=== PATIENT | female | born 1950 | race African-American/Black ===

== ENCOUNTER 2017-04-08 07:28 | Inpatient (IN) | payer MEDICARE ==
[~2017-04-08] VITALS: Ht 162.6 cm; Wt 45.5 kg
[2017-04-08] MEDS ORDERED: FENT-77 TD (07:41)
[2017-04-08] MEDS ORDERED: SERT50TA12 PO (07:41)
[2017-04-08] MEDS ORDERED: ESTR-95 PO (07:41)
[2017-04-08] MEDS ORDERED: FLUO15CR2 TP (07:41)
[2017-04-08] MEDS ORDERED: HYDR8TAB43 PO (07:41)
[2017-04-08] MEDS ORDERED: TEMA15CA PO (07:41)
[2017-04-08] MEDS ORDERED: OXCA300T PO (07:41)
[2017-04-08] MEDS ORDERED: CLON1 PO (07:41)
[2017-04-08] MEDS ORDERED: PROV5 PO (07:41)
[2017-04-08 07:42] LABS: GLUCOSE,POINT OF CARE 134 MG/DL (70-110)
[2017-04-08] MEDS ORDERED: SITA1TAB2 PO (08:01)
[2017-04-08] MEDS ORDERED: ONDANSETRON HCL 4 MG/2 ML VIAL IVP ONE (09:15)
[2017-04-08] MEDS ORDERED: SODIUM CHLORIDE 0.9% 1,000 ML IV ONE (09:15)
[2017-04-08] MEDS ORDERED: HYDROmorphone 2 MG/ML SYRINGE IVP ONE (09:15)
[2017-04-08 09:17] LABS: BASOPHILS % (AUTO) 0.5 % (0.0-2.0); EOSINOPHILS % (AUTO) 0.7 % (1.0-6.0); HEMATOCRIT 34.4 % (36-46); HEMOGLOBIN 11.4 g/dL (12.0-16.0); LYMPHOCYTES # (AUTO) 0.9 K/uL (1.0-4.8); LYMPHOCYTES % (AUTO) 28.2 % (22.0-44.0); MEAN CORPUSCULAR VOLUME 91 fL (80-100); MONOCYTES # (AUTO) 0.2 K/uL (0.1-1.0); MONOCYTES % (AUTO) 6.7 % (2.0-9.0); NEUTROPHILS % (AUTO) 63.9 % (40.0-70.0); PLATELET COUNT (AUTO) 295 K/uL (150-450); RED BLOOD CELL COUNT(AUTO) 3.79 MIL/uL (4.00-5.20); RED CELL DISTRIBUTION WIDTH 14.9 % (11.5-14.5); WHITE BLOOD COUNT (AUTO) 3.1 K/uL (4.5-11.0)
[2017-04-08 09:29] LABS: ALANINE AMINOTRANSFERASE 19 U/L (12-78); ALBUMIN 3.4 g/dL (3.4-5.0); ANION GAP 7 mmol/L (8-16); ASPARTATE AMINOTRANSFERASE 26 U/L (15-37); BILIRUBIN,TOTAL 0.3 mg/dL (0.1-1.0); CALCIUM, TOTAL 7.8 mg/dL (8.8-10.5); CARBON DIOXIDE 32 mmol/L (22-29); CHLORIDE 100 mmol/L (98-107); CREATININE 0.83 mg/dL (0.60-1.30); GLOMERULAR FILTR. RATE CALC > 60 mL/min (>60); SODIUM SERUM 139 mmol/L (136-145); UREA NITROGEN, BLOOD 19 mg/dL (7-18)
[2017-04-08] MEDS ORDERED: MAGNESIUM HYDROXIDE SUSPENSION 30 ML UDCUP PO PRN (09:30)
[2017-04-08] MEDS ORDERED: 0.9% SODIUM CHLORIDE 10 ML SYRINGE IVP PRN ×2 (09:30→20:45)
[2017-04-08] MEDS ORDERED: OxyCODONE HCL/ACETAMINOPHEN 5-325 MG TABLET PO PRN (09:30)
[2017-04-08] MEDS ORDERED: POTASSIUM CHLORIDE 20 MEQ ER TABLET PO PRN ×2 (09:30→10:45)
[2017-04-08] MEDS ORDERED: INSULIN ASPART 100 UNITS/ML SQ PRN (09:30)
[2017-04-08] MEDS ORDERED: ONDANSETRON HCL 4 MG/2 ML VIAL IVP PRN ×2 (09:30)
[2017-04-08] MEDS ORDERED: DEXTROSE 50%-WATER 25 GM/50 ML SYRINGE IVP PRN ×2 (09:30→10:45)
[2017-04-08] MEDS ORDERED: POTASSIUM CHL 10 MEQ/WATER 50 ML IV PRN ×2 (09:30→10:45)
[2017-04-08] MEDS ORDERED: BISACODYL 10 MG RECTAL RECTAL SUPPOSITORY PR PRN (09:30)
[2017-04-08] MEDS ORDERED: ACETAMINOPHEN 325 MG TABLET PO PRN (09:30)
[2017-04-08 09:32] LABS: POTASSIUM 2.9 mmol/L (3.5-5.1)
[2017-04-08] MEDS ORDERED: POTASSIUM CHLORIDE 20 MEQ ER TABLET PO ONE (09:45)
[2017-04-08] MEDS ORDERED: POTASSIUM CHL 10 MEQ/WATER 50 ML IV SCH (09:45)
[2017-04-08] MEDS ORDERED: HYDR2 PO (10:46)
[2017-04-08] MEDS ORDERED: FENT50PAT TD (10:46)
[2017-04-08 11:22] VITALS: BP 103/62
[2017-04-08] MEDS ORDERED: FentaNYL CITRATE-PF 100 MCG/2 ML VIAL IVP ONE (12:00)
[2017-04-08] MEDS ORDERED: MORPHINE SULFATE 4 MG/ML SYRINGE IVP ONE (12:00)
[2017-04-08] MEDS ORDERED: MIDAZOLAM HCL 2 MG/2 ML VIAL IVP ONE (12:00)
[2017-04-08] MEDS: INSULIN ASPART 100 UNITS/ML SQ PRN ×2 (12:13→20:43)
[2017-04-08] MEDS: MORPHINE SULFATE 2 MG/ML SYRINGE IVP PRN ×2 (12:25→20:30)
[2017-04-08] MEDS ORDERED: CeFAZolin 2 GM/DEXTROSE 50 ML IV ONE (15:00)
[2017-04-08] MEDS ORDERED: TRANEXAMIC ACID 1,000 MG in DEXTROSE 5%-WATER 50 ML IV ONE ×2 (15:00→16:00)
[2017-04-08] MEDS ORDERED: MORPHINE SULFATE 2 MG/ML SYRINGE IVP ONE (15:00)
[2017-04-08] MEDS ORDERED: 0.9% SODIUM CHLORIDE 10 ML SYRINGE IVP ONE (15:02)
[2017-04-08] MEDS ORDERED: MORPHINE SULFATE/PF 1 MG/ML 10 ML AMP ONE (15:03)
[2017-04-08] MEDS ORDERED: RINGERS SOLUTION,LACTATED 1,000 ML IV ONE ×3 (16:13→17:50)
[2017-04-08] MEDS ORDERED: LIDOCAINE HCL/PF 1% 30 ML VIAL ONE (16:24)
[2017-04-08 16:48] LABS: GLUCOSE,POINT OF CARE 125 MG/DL (70-110)
[2017-04-08] MEDS ORDERED: HYDROmorphone 2 MG/ML SYRINGE IVP PRN (17:15)
[2017-04-08] MEDS ORDERED: FentaNYL CITRATE-PF 100 MCG/2 ML VIAL IVP PRN (17:15)
[2017-04-08] MEDS ORDERED: MEPERIDINE-PF 25 MG/ML SYRINGE IVP PRN (17:15)
[2017-04-08 20:15] VITALS: BP 108/77
[2017-04-08] MEDS ORDERED: MORPHINE SULFATE 2 MG/ML SYRINGE IVP PRN (20:30)
[2017-04-08] MEDS ORDERED: OxyCODONE HCL 5 MG IR TABLET PO PRN (20:30)
[2017-04-08] MEDS ORDERED: HYDROCODONE/ACETAMINOPHEN 5-325 MG TABLET PO PRN (20:30)
[2017-04-08] MEDS ORDERED: OxyCODONE HCL 10 MG ER TABLET PO PRN (20:30)
[2017-04-08] MEDS ORDERED: MORPHINE SULFATE 4 MG/ML SYRINGE IVP PRN (20:30)
[2017-04-08] MEDS ORDERED: DOCUSATE SODIUM 100 MG CAPSULE PO SCH (21:00)
[2017-04-08 22:02] LABS: GLUCOSE COMMENT 1 Received Meds; GLUCOSE,POINT OF CARE 163 MG/DL (70-110)
[2017-04-08] MEDS: OXYGEN THERAPY IH SCH (22:16)
[2017-04-08] MEDS: SODIUM CHLORIDE 0.9% 1,000 ML IV SCH (22:17)
[2017-04-08] MEDS: HYDROmorphone 2 MG/ML SYRINGE IVP PRN (23:36)
[2017-04-08 23:39] VITALS: BP 111/70
[2017-04-09] MEDS: CeFAZolin 2 GM/DEXTROSE 50 ML IV SCH ×2 (01:21→08:48)
[2017-04-09] MEDS: TEMAZEPAM 15 MG CAPSULE PO PRN ×2 (01:41→21:29)
[2017-04-09 05:51] VITALS: BP 100/59
[2017-04-09] MEDS: HYDROmorphone 2 MG/ML SYRINGE IVP PRN ×5 (05:51→19:49)
[2017-04-09] MEDS: INSULIN ASPART 100 UNITS/ML SQ PRN ×4 (05:52→20:41)
[2017-04-09 06:48] LABS: ANION GAP 4 mmol/L (8-16); CALCIUM, TOTAL 7.4 mg/dL (8.8-10.5); CARBON DIOXIDE 32 mmol/L (22-29); CHLORIDE 102 mmol/L (98-107); CREATININE 0.72 mg/dL (0.60-1.30); GLOMERULAR FILTR. RATE CALC > 60 mL/min (>60); POTASSIUM 3.5 mmol/L (3.5-5.1); SODIUM SERUM 138 mmol/L (136-145); UREA NITROGEN, BLOOD 16 mg/dL (7-18)
[2017-04-09] MEDS ORDERED: SUCCINYLCHOLINE CHLORIDE 20 MG/ML 10 ML VIAL IVP ONE (06:53)
[2017-04-09] MEDS ORDERED: LIDOCAINE HCL/PF 2% 5 ML VIAL INJ ONE (06:53)
[2017-04-09] MEDS ORDERED: 0.9% SODIUM CHLORIDE 10 ML VIAL IVP ONE (06:53)
[2017-04-09] MEDS ORDERED: KETOROLAC TROMETHAMINE 60 MG/2 ML VIAL IM ONE (06:53)
[2017-04-09] MEDS ORDERED: EPHEDrine SULFATE 50 MG/ML VIAL IM ONE (06:53)
[2017-04-09] MEDS ORDERED: EPINEPHrine 1:1,000 [1 MG/ML] AMP IM ONE (06:53)
[2017-04-09] MEDS ORDERED: ROCURONIUM BROMIDE 10 MG/ML 5 ML VIAL IVP ONE (06:53)
[2017-04-09] MEDS ORDERED: PROPOFOL 1% 20 ML VIAL IVP ONE (06:53)
[2017-04-09] MEDS ORDERED: PHENYLEPHRINE HCL 10 MG/ML VIAL IVP ONE (06:53)
[2017-04-09 07:11] LABS: BASOPHILS % (AUTO) 0.1 % (0.0-2.0); EOSINOPHILS % (AUTO) 0.1 % (1.0-6.0); HEMATOCRIT 27.8 % (36-46); HEMOGLOBIN 9.1 g/dL (12.0-16.0); LYMPHOCYTES # (AUTO) 0.7 K/uL (1.0-4.8); LYMPHOCYTES % (AUTO) 8.9 % (22.0-44.0); MEAN CORPUSCULAR HEMOGLOBIN 30.2 pg (26.0-34.0); MEAN CORPUSCULAR HGB CONC 32.8 G/dL (31.0-37.0); MEAN CORPUSCULAR VOLUME 92 fL (80-100); MONOCYTES # (AUTO) 0.6 K/uL (0.1-1.0); MONOCYTES % (AUTO) 6.8 % (2.0-9.0); NEUTROPHILS # (AUTO) 6.9 K/uL (1.8-7.7); NEUTROPHILS % (AUTO) 84.1 % (40.0-70.0); PLATELET COUNT (AUTO) 239 K/uL (150-450); RED BLOOD CELL COUNT(AUTO) 3.02 MIL/uL (4.00-5.20); WHITE BLOOD COUNT (AUTO) 8.2 K/uL (4.5-11.0)
[2017-04-09 07:51] VITALS: BP 96/52
[2017-04-09] MEDS: OXYGEN THERAPY IH SCH ×2 (08:00→21:29)
[2017-04-09] MEDS: PANTOPRAZOLE SODIUM 40 MG/VIAL IVP SCH (08:42)
[2017-04-09] MEDS: SODIUM CHLORIDE 0.9% 1,000 ML IV SCH ×2 (08:43→19:49)
[2017-04-09] MEDS: ASPIRIN 81 MG EC TABLET PO SCH (08:48)
[2017-04-09 09:09] LABS: GLUCOSE COMMENT 1 Repeated; GLUCOSE,POINT OF CARE 159 MG/DL (70-110)
[2017-04-09 11:18] VITALS: BP 93/59
[2017-04-09 13:32] LABS: GLUCOSE COMMENT 1 Received Meds; GLUCOSE,POINT OF CARE 202 MG/DL (70-110)
[2017-04-09] MEDS: CHOLECALCIFEROL (VIT D3) 1,000 UNITS TABLET PO SCH (15:10)
[2017-04-09] MEDS: FentaNYL 50 MCG/HOUR PATCH TD SCH (15:58)
[2017-04-09 16:16] VITALS: BP 111/68
[2017-04-09 18:08] LABS: GLUCOSE,POINT OF CARE 157 MG/DL (70-110)
[2017-04-09 19:16] VITALS: BP 105/64
[2017-04-09 20:47] LABS: GLUCOSE COMMENT 1 Received Meds; GLUCOSE,POINT OF CARE 157 MG/DL (70-110)
[2017-04-09 23:24] VITALS: BP 103/68
[2017-04-10] MEDS: HYDROmorphone 2 MG/ML SYRINGE IVP PRN ×5 (02:18→20:50)
[2017-04-10 05:37] VITALS: BP 125/76
[2017-04-10] MEDS: INSULIN ASPART 100 UNITS/ML SQ PRN ×4 (06:02→20:57)
[2017-04-10] MEDS: PANTOPRAZOLE SODIUM 40 MG/VIAL IVP SCH (07:54)
[2017-04-10] MEDS: CHOLECALCIFEROL (VIT D3) 1,000 UNITS TABLET PO SCH (07:54)
[2017-04-10] MEDS: ASPIRIN 81 MG EC TABLET PO SCH (07:55)
[2017-04-10 08:02] VITALS: BP 112/72
[2017-04-10] MEDS ORDERED: INFLUENZA VIRUS VACCINE QVS 2017-18 (3YR+)/PF 60 MCG/0.5 ML SYRINGE IM ONE (11:15)
[2017-04-10] MEDS: OXcarbazepine 300 MG TABLET PO SCH ×2 (11:47→20:47)
[2017-04-10] MEDS: SERTRALINE HCL 50 MG TABLET PO SCH (11:48)
[2017-04-10] MEDS: OXYGEN THERAPY IH SCH ×2 (11:49→20:00)
[2017-04-10 12:10] VITALS: BP 116/69
[2017-04-10 12:13] LABS: GLUCOSE COMMENT 1 Received Meds; GLUCOSE,POINT OF CARE 153 MG/DL (70-110)
[2017-04-10] MEDS: ACETAMINOPHEN 325 MG TABLET PO PRN (16:32)
[2017-04-10 16:54] VITALS: BP 122/80
[2017-04-10 18:48] LABS: GLUCOSE,POINT OF CARE 170 MG/DL (70-110)
[2017-04-10 19:27] VITALS: BP 106/61
[2017-04-10 19:33] LABS: GLUCOSE COMMENT 1 Received Meds; GLUCOSE,POINT OF CARE 202 MG/DL (70-110)
[2017-04-10] MEDS: DOCUSATE SODIUM 100 MG CAPSULE PO SCH (20:47)
[2017-04-10] MEDS: TEMAZEPAM 15 MG CAPSULE PO PRN (20:56)
[2017-04-10 23:36] VITALS: BP 98/56
[2017-04-11] MEDS: HYDROmorphone 2 MG/ML SYRINGE IVP PRN ×5 (00:38→20:37)
[2017-04-11 04:19] VITALS: BP 104/75
[2017-04-11] MEDS: INSULIN ASPART 100 UNITS/ML SQ PRN ×4 (05:04→21:37)
[2017-04-11 05:57] LABS: GLUCOSE COMMENT 1 Received Meds; GLUCOSE,POINT OF CARE 150 MG/DL (70-110)
[2017-04-11 05:57] LABS: GLUCOSE COMMENT 1 Received Meds; GLUCOSE,POINT OF CARE 204 MG/DL (70-110)
[2017-04-11 07:54] VITALS: BP 105/80
[2017-04-11] MEDS: OXYGEN THERAPY IH SCH (08:00)
[2017-04-11] MEDS: PANTOPRAZOLE SODIUM 40 MG/VIAL IVP SCH (08:30)
[2017-04-11] MEDS: DOCUSATE SODIUM 100 MG CAPSULE PO SCH ×2 (08:31→20:36)
[2017-04-11] MEDS: CHOLECALCIFEROL (VIT D3) 1,000 UNITS TABLET PO SCH (08:31)
[2017-04-11] MEDS: ASPIRIN 81 MG EC TABLET PO SCH (08:31)
[2017-04-11] MEDS: SERTRALINE HCL 50 MG TABLET PO SCH (08:31)
[2017-04-11] MEDS: OXcarbazepine 300 MG TABLET PO SCH ×2 (08:31→20:36)
[2017-04-11] MEDS: HEPARIN SODIUM,PORCINE 5,000 UNITS/ML VIAL SQ SCH ×2 (11:15→20:36)
[2017-04-11 11:25] VITALS: BP 101/66
[2017-04-11 11:57] LABS: GLUCOSE COMMENT 1 Received Meds; GLUCOSE,POINT OF CARE 195 MG/DL (70-110)
[2017-04-11] MEDS: ACETAMINOPHEN 325 MG TABLET PO PRN (14:50)
[2017-04-11 15:37] VITALS: BP 117/66
[2017-04-11 17:48] LABS: GLUCOSE COMMENT 1 Received Meds; GLUCOSE,POINT OF CARE 177 MG/DL (70-110)
[2017-04-11 20:33] VITALS: BP 125/63
[2017-04-11] MEDS: TEMAZEPAM 15 MG CAPSULE PO PRN (21:38)
[2017-04-11 23:25] VITALS: BP 94/57
[2017-04-12] MEDS: HYDROmorphone 2 MG/ML SYRINGE IVP PRN ×5 (01:47→17:06)
[2017-04-12 04:51] VITALS: BP 105/58
[2017-04-12] MEDS: INSULIN ASPART 100 UNITS/ML SQ PRN ×2 (06:31→12:20)
[2017-04-12] MEDS: ASPIRIN 81 MG EC TABLET PO SCH (08:15)
[2017-04-12] MEDS: OXcarbazepine 300 MG TABLET PO SCH (08:15)
[2017-04-12] MEDS: CHOLECALCIFEROL (VIT D3) 1,000 UNITS TABLET PO SCH (08:15)
[2017-04-12] MEDS: PANTOPRAZOLE SODIUM 40 MG/VIAL IVP SCH (08:15)
[2017-04-12] MEDS: OXYGEN THERAPY IH SCH ×2 (08:16→10:08)
[2017-04-12] MEDS: DOCUSATE SODIUM 100 MG CAPSULE PO SCH (08:16)
[2017-04-12] MEDS: SERTRALINE HCL 50 MG TABLET PO SCH (08:16)
[2017-04-12 08:19] VITALS: BP 111/76
[2017-04-12] MEDS: HEPARIN SODIUM,PORCINE 5,000 UNITS/ML VIAL SQ SCH (08:23)
[2017-04-12] MEDS ORDERED: PNEUMOCOCCAL VACCINE POLYVALENT 0.5 ML VIAL [PPSV23] IM ONE (11:15)
[2017-04-12 11:35] LABS: GLUCOSE COMMENT 1 Received Meds; GLUCOSE,POINT OF CARE 149 MG/DL (70-110)
[2017-04-12 11:40] VITALS: BP 104/66
[2017-04-12 11:47] LABS: GLUCOSE COMMENT 1 Received Meds; GLUCOSE,POINT OF CARE 161 MG/DL (70-110)
[2017-04-12 12:50] LABS: GLUCOSE,POINT OF CARE 208 MG/DL (70-110)
[2017-04-12 16:19] VITALS: BP 120/76
[2017-04-12] MEDS: FentaNYL 50 MCG/HOUR PATCH TD SCH (17:07)
== END 2017-04-12 18:05 | DRG 470 ==
LOC: EMS 07:30 → 6N 09:42
PROVIDERS: ADMIT Internal Medicine; ATTEND Internal Medicine
PROC: BQ111ZZ Fluoroscopy of Left Hip using Low Osmolar Contrast (ICD-10-PCS; 2017-04-08)
PROC: 0SRS01Z Replacement of Left Hip Joint, Femoral Surface with Metal Synthetic Substitute, Open Approach (ICD-10-PCS; principal; 2017-04-08 15:30)
PROC: 3E0234Z Introduction of Serum, Toxoid and Vaccine into Muscle, Percutaneous Approach (ICD-10-PCS; 2017-04-10)
PROC: 3E0234Z Introduction of Serum, Toxoid and Vaccine into Muscle, Percutaneous Approach (ICD-10-PCS; 2017-04-12)
DX: S72.002A Fracture of unspecified part of neck of left femur, initial encounter for closed fracture (principal); E44.0 Moderate protein-calorie malnutrition; M84.459A Pathological fracture, hip, unspecified, initial encounter for fracture; Z68.1 Body mass index [BMI] 19.9 or less, adult; D63.8 Anemia in other chronic diseases classified elsewhere; D86.9 Sarcoidosis, unspecified; E11.9 Type 2 diabetes mellitus without complications; E55.9 Vitamin D deficiency, unspecified; E87.6 Hypokalemia; F31.9 Bipolar disorder, unspecified; G89.4 Chronic pain syndrome; K21.9 Gastro-esophageal reflux disease without esophagitis; Z66 Do not resuscitate; M79.7 Fibromyalgia; K52.9 Noninfective gastroenteritis and colitis, unspecified; W18.30XA Fall on same level, unspecified, initial encounter; Y92.002 Bathroom of unspecified non-institutional (private) residence as the place of occurrence of the external cause; Z91.19 Patient's noncompliance with other medical treatment and regimen; Z98.84 Bariatric surgery status; Z23 Encounter for immunization; Y93.89 Activity, other specified; Y99.8 Other external cause status; Z79.899 Other long term (current) drug therapy; Z88.2 Allergy status to sulfonamides; Z91.041 Radiographic dye allergy status; Z90.49 Acquired absence of other specified parts of digestive tract; Z22.322 Carrier or suspected carrier of Methicillin resistant Staphylococcus aureus
CPT/HCPCS: 51702; 72170; 73501; 82306; 82962; 86850; 86900; 86901; 87081; 90471; 93005; 93041; 93306; 96361; 96374; 96375; 97110; 97116; 97161; 97166; 97530; 97535; 99285; C9113; J0171; J0330; J0690; J1170; J1644; J1885; J2250; J2270; J2370; J2405; J2704; J3010; J3490; J7030; J7060; J7120

== ENCOUNTER → 2019-04-25 | Outpatient (CLI) | payer MEDICARE, MEDICAID ==
[~2019-04-25] MED LIST: CLON1TAB13 PO; ESTR-95 PO; FENT50PAT TD; FLUO15CR2 TP; HYDR2 PO; OXCA300T29 PO; PROV5 PO; SERT50TA12 PO; SITA1TAB2 PO; TEMA15CA PO
== END | disposition home or self-care (01) ==
LOC: RADPV 09:37
PROVIDERS: ATTEND Specialist
DX: M25.511 Pain in right shoulder (principal); M25.571 Pain in right ankle and joints of right foot; G89.29 Other chronic pain

== ENCOUNTER 2021-01-13 16:32 | Emergency (ER) | payer MEDICARE ==
[~2021-01-13] VITALS: Ht 162.6 cm; Wt 54.5 kg
[~2021-01-13 16:32] MED LIST changes: +ALPR0.255 PO; +BUME1TAB34 PO; -CLON1TAB13 PO; +DOCU-275 PO; +DULA0.75 SQ; -ESTR-95 PO; +FAMO20 PO; -FENT50PAT TD; +FERR-89 PO; -HYDR2 PO; +LEVO25TA9 PO; -OXCA300T29 PO; +OXCA300T57 PO; +OXYC10TA92 PO; -PROV5 PO; +SERT-158 PO; -SERT50TA12 PO; -SITA1TAB2 PO
[2021-01-13 16:40] VITALS: BP 130/73
[2021-01-13 18:13] LABS: BASOPHILS % (AUTO) 1.7 % (0.0-2.0); EOSINOPHILS % (AUTO) 1.9 % (1.0-6.0); HEMATOCRIT 24.7 % (36-46); HEMOGLOBIN 7.5 g/dL (12.0-16.0); LYMPHOCYTES # (AUTO) 1.1 K/uL (1.0-4.8); LYMPHOCYTES % (AUTO) 21.4 % (22.0-44.0); MEAN CORPUSCULAR HEMOGLOBIN 22.4 pg (26.0-34.0); MEAN CORPUSCULAR HGB CONC 30.6 G/dL (31.0-37.0); MEAN CORPUSCULAR VOLUME 73 fL (80-100); MONOCYTES # (AUTO) 0.6 K/uL (0.1-1.0); MONOCYTES % (AUTO) 11.6 % (2.0-9.0); NEUTROPHILS # (AUTO) 3.4 K/uL (1.8-7.7); NEUTROPHILS % (AUTO) 63.4 % (40.0-70.0); PLATELET COUNT (AUTO) 372 K/uL (150-450); RED BLOOD CELL COUNT(AUTO) 3.36 MIL/uL (4.00-5.20); RED CELL DISTRIBUTION WIDTH 19.5 % (11.5-14.5)
[2021-01-13 18:20] LABS: ANION GAP 3 mmol/L (8-16); CALCIUM, TOTAL 8.8 mg/dL (8.8-10.5); CARBON DIOXIDE 32 mmol/L (22-29); CHLORIDE 97 mmol/L (98-107); CREATININE 1.02 mg/dL (0.60-1.30); GLOMERULAR FILTR. RATE CALC > 60 mL/min (>60); GLUCOSE,RANDOM 188 mg/dL (70-110); POTASSIUM 3.5 mmol/L (3.5-5.1); SODIUM SERUM 132 mmol/L (136-145); UREA NITROGEN, BLOOD 23 mg/dL (7-18)
[2021-01-13 18:28] LABS: ALANINE AMINOTRANSFERASE 32 U/L (12-78); ALKALINE PHOSPHATASE 78 U/L (46-116); ASPARTATE AMINOTRANSFERASE 26 U/L (15-37); BILIRUBIN,TOTAL 0.2 mg/dL (0.1-1.0); TOTAL PROTEIN, SERUM 8.7 g/dL (6.4-8.2)
[2021-01-13 18:36] LABS: B-TYPE NATRIURETIC PEPTIDE 152 pg/mL (0-100)
== END 2021-01-13 19:00 | disposition left against medical advice (07) ==
LOC: EMS 16:32
DX: R06.02 Shortness of breath (principal); Z53.21 Procedure and treatment not carried out due to patient leaving prior to being seen by health care provider
CPT/HCPCS: 80053; 83880; 84484; 85025; 93005

== ENCOUNTER 2021-01-14 11:00 | Emergency (ER) | payer MEDICARE ==
[~2021-01-14] VITALS: Ht 162.6 cm; Wt 54.5 kg
[2021-01-14 14:16] VITALS: BP 113/61
== END 2021-01-14 14:31 | disposition home or self-care (01) ==
LOC: EMS 11:07
DX: T78.40XA Allergy, unspecified, initial encounter (principal); G89.29 Other chronic pain; X58.XXXA Exposure to other specified factors, initial encounter
CPT/HCPCS: 99283; Z7502

== ENCOUNTER 2021-02-05 18:50 | Emergency (ER) | payer MEDICARE ==
[~2021-02-05] VITALS: Ht 162.6 cm; Wt 56.8 kg
[~2021-02-05 18:50] MED LIST changes: +DOCU-270 PO; -DOCU-275 PO
[2021-02-05 19:03] VITALS: BP 116/73
== END 2021-02-05 20:55 | disposition home or self-care (01) ==
LOC: EMS 18:53
DX: M54.5 Low back pain (principal); E11.9 Type 2 diabetes mellitus without complications; Z79.899 Other long term (current) drug therapy; Z91.041 Radiographic dye allergy status; Z88.2 Allergy status to sulfonamides
CPT/HCPCS: 99283

== ENCOUNTER 2021-04-01 12:42 | Emergency (ER) | payer MEDICARE ==
[~2021-04-01] VITALS: Ht 162.6 cm; Wt 70.0 kg
[2021-04-01 12:55] VITALS: BP 132/57
== END 2021-04-01 13:40 | disposition home or self-care (01) ==
LOC: EMS 12:49
DX: G89.29 Other chronic pain (principal); M54.50 Low back pain, unspecified; F41.9 Anxiety disorder, unspecified; E11.9 Type 2 diabetes mellitus without complications; Z76.0 Encounter for issue of repeat prescription; Z88.2 Allergy status to sulfonamides; Z91.041 Radiographic dye allergy status; Z88.8 Allergy status to other drugs, medicaments and biological substances
CPT/HCPCS: 99281; Z7502

== ENCOUNTER 2025-04-27 00:31 | Inpatient (IN) | payer MEDICARE, MEDICAID ==
[2025-04-27] VITALS (8 sets, daily range): BP systolic 128–152; BP diastolic 66–97; PULSE 55–98; RESP 16–21; TEMP 97.8–98.7; O2SAT 94–100
[~2025-04-27] VITALS: Ht 165.1 cm; Wt 63.0 kg
[~2025-04-27 00:31] MED LIST changes: +ALPR-705 PO; -ALPR0.255 PO; -BUME1TAB34 PO; +BUME1TAB50 PO; -DOCU-270 PO; +DOCU-385 PO; -FERR-89 PO; +FERR325T27 PO; -OXCA300T57 PO; +OXCA300T70 PO
[2025-04-27 01:45] LABS: PLATELET COUNT (AUTO) 152 K/uL (150-450); RED BLOOD CELL COUNT(AUTO) 3.86 MIL/uL (4.00-5.20); RED CELL DISTRIBUTION WIDTH 18.4 % (11.5-14.5); WHITE BLOOD COUNT (AUTO) 4.2 K/uL (4.5-11.0)
[2025-04-27 02:02] LABS: CALCIUM, TOTAL 8.2 mg/dL (8.8-10.5); CREATININE 1.67 mg/dL (0.60-1.30); GLOMERULAR FILTR. RATE CALC 36.0 mL/min (>60); GLUCOSE,RANDOM 77.0 mg/dL (70-110); SODIUM SERUM 136.0 mmol/L (136-145); UREA NITROGEN, BLOOD 49.0 mg/dL (7-18)
[2025-04-27] MEDS: DEXTROSE 50%-WATER 25 GM/50 ML SYRINGE IVP ONE (02:52)
[2025-04-27 03:20] LABS: GLUCOMETER DEV NAME(LOC) ERT.7; GLUCOSE,POINT OF CARE 118 MG/DL (70-110)
[2025-04-27] MEDS: DEXTROSE 5%-0.9% SODIUM CHL 1,000 ML IV ONE (03:27)
[2025-04-27 04:10] LABS: TROPONIN I-HIGH SENSITIVITY 32 ng/L (<51)
[2025-04-27] MEDS: POTASSIUM CHLORIDE 20 MEQ ER TABLET PO ONE (04:27)
[2025-04-27] MEDS: OxyCODONE HCL/ACETAMINOPHEN 5-325 MG TABLET PO ONE (04:27)
[2025-04-27] MEDS: FUROSEMIDE 40 MG/4 ML VIAL IVP ONE (04:27)
[2025-04-27 04:31] LABS: GLUCOMETER DEV NAME(LOC) ERT.7; GLUCOSE,POINT OF CARE 156 MG/DL (70-110)
[2025-04-27 07:20] LABS: APPEARANCE,URINE CLEAR (CLEAR); GLUCOSE, URINE (UA) NEGATIVE (NEGATIVE); LEUKOCYTE ESTERASE ,URINE TRACE (NEGATIVE); NITRATE,URINE NEGATIVE (NEGATIVE); OCCULT BLOOD,URINE NEGATIVE (NEGATIVE); SPECIFIC GRAVITIY, URINE 1.012 (1.003-1.030)
[2025-04-27 07:38] LABS: SQUAMOUS EPITHELIAL CELL,UR None Seen /LPF (None Seen)
[2025-04-27] MEDS: HEPARIN SODIUM,PORCINE 5,000 UNITS/ML VIAL SQ SCH (09:51)
[2025-04-27 12:40] LABS: GLUCOMETER DEV NAME(LOC) 5S.2E; GLUCOSE,POINT OF CARE 121 MG/DL (70-110)
[2025-04-27] MEDS: DEXTROSE 50%-WATER 25 GM/50 ML SYRINGE IVP PRN (12:42)
[2025-04-27 13:36] LABS: GLUCOMETER DEV NAME(LOC) 5N.1D; GLUCOSE,POINT OF CARE 37 MG/DL (70-110)
[2025-04-27 13:36] LABS: GLUCOMETER DEV NAME(LOC) 5N.1D; GLUCOSE,POINT OF CARE 304 MG/DL (70-110)
[2025-04-27] MEDS: OxyCODONE HCL/ACETAMINOPHEN 5-325 MG TABLET PO PRN (14:59)
[2025-04-27 16:41] LABS: CALCIUM, TOTAL 8.3 mg/dL (8.8-10.5); CREATININE 1.65 mg/dL (0.60-1.30); GLOMERULAR FILTR. RATE CALC 37.0 mL/min (>60); GLUCOSE,RANDOM 211.0 mg/dL (70-110); SODIUM SERUM 133.0 mmol/L (136-145); UREA NITROGEN, BLOOD 50.0 mg/dL (7-18)
[2025-04-27] MEDS: LEVOTHYROXINE SODIUM 25 MCG TABLET PO SCH (17:00)
[2025-04-27] MEDS ORDERED: DOXY50 PO (17:25)
[2025-04-27] MEDS: DEXTROSE 10%-WATER 1,000 ML IV SCH (17:55)
[2025-04-27 20:35] LABS: GLUCOMETER DEV NAME(LOC) 5N.1D; GLUCOSE,POINT OF CARE 181 MG/DL (70-110)
[2025-04-27 22:56] LABS: GLUCOMETER DEV NAME(LOC) 5N.1D; GLUCOSE,POINT OF CARE 158 MG/DL (70-110)
[2025-04-28 02:26] LABS: GLUCOMETER DEV NAME(LOC) 5N.1D; GLUCOSE,POINT OF CARE 256 MG/DL (70-110)
[2025-04-28 02:26] LABS: GLUCOMETER DEV NAME(LOC) 5N.1D; GLUCOSE,POINT OF CARE 37 MG/DL (70-110)
[2025-04-28 03:32] VITALS: BP 140/78; PULSE 95; RESP 19; TEMP 98.2; O2SAT 98
[2025-04-28 06:06] LABS: PLATELET COUNT (AUTO) 151 K/uL (150-450); RED BLOOD CELL COUNT(AUTO) 4.17 MIL/uL (4.00-5.20); RED CELL DISTRIBUTION WIDTH 18.4 % (11.5-14.5); WHITE BLOOD COUNT (AUTO) 3.4 K/uL (4.5-11.0)
[2025-04-28 06:15] LABS: CALCIUM, TOTAL 8.6 mg/dL (8.8-10.5); CREATININE 1.63 mg/dL (0.60-1.30); GLOMERULAR FILTR. RATE CALC 38.0 mL/min (>60); GLUCOSE,RANDOM 103.0 mg/dL (70-110); SODIUM SERUM 136.0 mmol/L (136-145); UREA NITROGEN, BLOOD 48.0 mg/dL (7-18)
[2025-04-28 06:41] LABS: GLUCOMETER DEV NAME(LOC) 5S.2E; GLUCOSE,POINT OF CARE 85 MG/DL (70-110)
[2025-04-28 08:24] VITALS: BP 145/92; PULSE 93; RESP 18; TEMP 98.2; O2SAT 98
[2025-04-28 08:41] LABS: GLUCOMETER DEV NAME(LOC) 5N.1D; GLUCOSE,POINT OF CARE 162 MG/DL (70-110)
[2025-04-28 12:05] LABS: GLUCOMETER DEV NAME(LOC) 5N.1D; GLUCOSE,POINT OF CARE 169 MG/DL (70-110)
[2025-04-28 12:23] VITALS: BP 148/99; PULSE 99; RESP 18; TEMP 98; O2SAT 98
[2025-04-28] MEDS: DEXTROSE 5%-LACTATED RINGERS 1,000 ML IV ONE (14:18)
[2025-04-28 15:50] LABS: GLUCOMETER DEV NAME(LOC) 5N.1D; GLUCOSE,POINT OF CARE 333 MG/DL (70-110)
[2025-04-28 17:20] LABS: GLUCOMETER DEV NAME(LOC) 5S.1E; GLUCOSE,POINT OF CARE 119 MG/DL (70-110)
[2025-04-28] MEDS ORDERED: DOXY-354 PO (18:20)
[2025-04-28 20:31] LABS: GLUCOMETER DEV NAME(LOC) 5N.1D; GLUCOSE,POINT OF CARE 283 MG/DL (70-110)
[2025-04-28 21:20] VITALS: BP 140/82; PULSE 98; RESP 18; TEMP 98.2; O2SAT 98
[2025-04-28 23:01] LABS: GLUCOMETER DEV NAME(LOC) 5S.1E; GLUCOSE,POINT OF CARE 357 MG/DL (70-110)
[2025-04-29] VITALS (8 sets, daily range): BP systolic 127–152; BP diastolic 86–110; PULSE 70–105; RESP 17–19; TEMP 97.3–98.4; O2SAT 93–98
[2025-04-29] MEDS: RINGERS SOLUTION,LACTATED 1,000 ML IV ONE (00:41)
[2025-04-29 02:12] LABS: APPEARANCE,URINE CLEAR (CLEAR); GLUCOSE, URINE (UA) >=1000 mg/dL (NEGATIVE); LEUKOCYTE ESTERASE ,URINE MODERATE (NEGATIVE); NITRATE,URINE NEGATIVE (NEGATIVE); OCCULT BLOOD,URINE NEGATIVE (NEGATIVE); SPECIFIC GRAVITIY, URINE 1.015 (1.003-1.030)
[2025-04-29 02:14] LABS: CREATININE,URINE RANDOM 36.2 mg/dL (30.0-125.0)
[2025-04-29 02:51] LABS: SQUAMOUS EPITHELIAL CELL,UR Rare /LPF (None Seen)
[2025-04-29 04:31] LABS: GLUCOMETER DEV NAME(LOC) 5S.2E; GLUCOSE,POINT OF CARE 252 MG/DL (70-110)
[2025-04-29] MEDS ORDERED: SODIUM CHLORIDE 0.9% 500 ML IV ONE (06:07)
[2025-04-29] MEDS: CefTRIAXone 1 GM/DEXTROSE 50 ML IV SCH (06:12)
[2025-04-29] MEDS ORDERED: DEXTROSE 50%-WATER 25 GM/50 ML SYRINGE IVP PRN (06:30)
[2025-04-29 06:44] LABS: PLATELET COUNT (AUTO) 143 K/uL (150-450); RED BLOOD CELL COUNT(AUTO) 3.92 MIL/uL (4.00-5.20); RED CELL DISTRIBUTION WIDTH 18.0 % (11.5-14.5); WHITE BLOOD COUNT (AUTO) 3.8 K/uL (4.5-11.0)
[2025-04-29 06:55] LABS: CALCIUM, TOTAL 8.0 mg/dL (8.8-10.5); CREATININE 1.33 mg/dL (0.60-1.30); GLOMERULAR FILTR. RATE CALC 47.0 mL/min (>60); GLUCOSE,RANDOM 108.0 mg/dL (70-110); SODIUM SERUM 134.0 mmol/L (136-145); UREA NITROGEN, BLOOD 44.0 mg/dL (7-18)
[2025-04-29 12:06] LABS: GLUCOMETER DEV NAME(LOC) 5S.2E; GLUCOSE,POINT OF CARE 228 MG/DL (70-110)
[2025-04-29] MEDS: INSULIN LISPRO 100 UNITS/ML SQ PRN (12:23)
[2025-04-29] MEDS: FUROSEMIDE 20 MG/2 ML VIAL IVP SCH (17:27)
[2025-04-29 21:01] LABS: GLUCOMETER DEV NAME(LOC) 5N.1D; GLUCOSE,POINT OF CARE 191 MG/DL (70-110)
[2025-04-29 23:56] LABS: GLUCOMETER DEV NAME(LOC) 5S.2E; GLUCOSE,POINT OF CARE 385 MG/DL (70-110)
[2025-04-30] VITALS (7 sets, daily range): BP systolic 96–121; BP diastolic 62–87; PULSE 60–146; RESP 16–20; TEMP 97.9–98.8; O2SAT 94–99
[2025-04-30] MEDS: DIGOXIN 250 MCG/ML 2 ML AMP IVP ONE ×2 (01:23→02:06)
[2025-04-30] MEDS: DILTIAZEM HCL 5 MG/ML 5 ML VIAL IVP ONE ×2 (03:20→04:20)
[2025-04-30 06:35] LABS: PLATELET COUNT (AUTO) 171 K/uL (150-450); RED BLOOD CELL COUNT(AUTO) 3.98 MIL/uL (4.00-5.20); RED CELL DISTRIBUTION WIDTH 18.0 % (11.5-14.5); WHITE BLOOD COUNT (AUTO) 5.0 K/uL (4.5-11.0)
[2025-04-30 06:49] LABS: TROPONIN I-HIGH SENSITIVITY 29 ng/L (<51)
[2025-04-30 07:17] LABS: CALCIUM, TOTAL 8.0 mg/dL (8.8-10.5); CREATININE 1.35 mg/dL (0.60-1.30); GLOMERULAR FILTR. RATE CALC 47.0 mL/min (>60); GLUCOSE,RANDOM 137.0 mg/dL (70-110); SODIUM SERUM 135.0 mmol/L (136-145); UREA NITROGEN, BLOOD 50.0 mg/dL (7-18)
[2025-04-30] MEDS: LEVOTHYROXINE SODIUM 50 MCG TABLET PO SCH (08:34)
[2025-04-30 10:11] LABS: GLUCOMETER DEV NAME(LOC) ICU.S7; GLUCOSE,POINT OF CARE 158 MG/DL (70-110)
[2025-04-30 15:11] LABS: GLUCOMETER DEV NAME(LOC) ICU.S7; GLUCOSE,POINT OF CARE 184 MG/DL (70-110)
[2025-04-30] MEDS ORDERED: PHENYLEPHRINE 200 MG/D5%-WATER 250 ML IV PRN (17:15)
[2025-04-30] MEDS: APIXABAN 2.5 MG TABLET PO SCH (20:38)
[2025-04-30 23:36] LABS: GLUCOMETER DEV NAME(LOC) ICUN.7; GLUCOSE,POINT OF CARE 326 MG/DL (70-110)
[2025-04-30 23:40] LABS: GLUCOMETER DEV NAME(LOC) ICU.S7; GLUCOSE,POINT OF CARE 159 MG/DL (70-110)
[2025-05-01] VITALS: BP 127/65; PULSE 87; RESP 18; TEMP 97.6; O2SAT 98
[2025-05-01 04:00] VITALS: BP 103/66; PULSE 107; RESP 17; TEMP 97; O2SAT 99
[2025-05-01 06:13] LABS: PLATELET COUNT (AUTO) 173 K/uL (150-450); RED BLOOD CELL COUNT(AUTO) 3.84 MIL/uL (4.00-5.20); RED CELL DISTRIBUTION WIDTH 18.3 % (11.5-14.5); WHITE BLOOD COUNT (AUTO) 4.9 K/uL (4.5-11.0)
[2025-05-01 06:24] LABS: CALCIUM, TOTAL 8.4 mg/dL (8.8-10.5); CREATININE 1.54 mg/dL (0.60-1.30); GLOMERULAR FILTR. RATE CALC 40 mL/min (>60); GLUCOSE,RANDOM 188 mg/dL (70-110); SODIUM SERUM 135 mmol/L (136-145); TROPONIN I-HIGH SENSITIVITY 25 ng/L (<51); UREA NITROGEN, BLOOD 54 mg/dL (7-18)
[2025-05-01 06:35] LABS: GLUCOMETER DEV NAME(LOC) ICU.S7; GLUCOSE,POINT OF CARE 190 MG/DL (70-110)
[2025-05-01 08:00] VITALS: BP 138/60; PULSE 123; RESP 18; TEMP 97.2; O2SAT 99
[2025-05-01] MEDS: DILTIAZEM HCL 60 MG SR CAPSULE PO SCH (08:30)
[2025-05-01] MEDS: DIGOXIN 250 MCG/ML 2 ML AMP IVP SCH (08:31)
[2025-05-01] MEDS: PANTOPRAZOLE SODIUM 40 MG DR TABLET PO SCH (08:32)
[2025-05-01] MEDS: FUROSEMIDE 20 MG TABLET PO SCH (08:32)
[2025-05-01 12:00] VITALS: BP 124/70; PULSE 117; RESP 18; TEMP 97.5; O2SAT 99
[2025-05-01] MEDS: SERTRALINE HCL 50 MG TABLET PO SCH (14:18)
[2025-05-01 14:41] LABS: GLUCOMETER DEV NAME(LOC) ICU.S7; GLUCOSE,POINT OF CARE 283 MG/DL (70-110)
[2025-05-01 16:00] VITALS: BP 104/76; PULSE 123; RESP 14; TEMP 98; O2SAT 98
[2025-05-01 17:20] LABS: GLUCOMETER DEV NAME(LOC) ICU.S7; GLUCOSE,POINT OF CARE 171 MG/DL (70-110)
[2025-05-01 20:00] VITALS: BP 111/58; PULSE 111; RESP 22; TEMP 97.6; O2SAT 92
[2025-05-02] VITALS (7 sets, daily range): BP systolic 108–142; BP diastolic 62–102; PULSE 101–130; RESP 13–20; TEMP 97.5–98.9; O2SAT 94–95
[2025-05-02 00:21] LABS: GLUCOMETER DEV NAME(LOC) ICU.S7; GLUCOSE,POINT OF CARE 314 MG/DL (70-110)
[2025-05-02 05:52] LABS: CALCIUM, TOTAL 8.3 mg/dL (8.8-10.5); CREATININE 1.3 mg/dL (0.60-1.30); GLOMERULAR FILTR. RATE CALC 49.0 mL/min (>60); GLUCOSE,RANDOM 208.0 mg/dL (70-110); SODIUM SERUM 132.0 mmol/L (136-145); UREA NITROGEN, BLOOD 45.0 mg/dL (7-18)
[2025-05-02 05:58] LABS: PLATELET COUNT (AUTO) 183 K/uL (150-450); RED BLOOD CELL COUNT(AUTO) 3.63 MIL/uL (4.00-5.20); RED CELL DISTRIBUTION WIDTH 17.8 % (11.5-14.5); WHITE BLOOD COUNT (AUTO) 4.1 K/uL (4.5-11.0)
[2025-05-02 07:06] LABS: GLUCOMETER DEV NAME(LOC) ICU.S7; GLUCOSE,POINT OF CARE 196 MG/DL (70-110)
[2025-05-02] MEDS: DILTIAZEM HCL 60 MG SR CAPSULE PO SCH (08:24)
[2025-05-02] MEDS: TOLVAPTAN 15 MG TABLET PO ONE (08:25)
[2025-05-02] MEDS: SODIUM CHLORIDE 0.9% 500 ML IV ONE (08:26)
[2025-05-02] MEDS: METOPROLOL TARTRATE 5 MG/5 ML VIAL IVP SCH (13:03)
[2025-05-02] MEDS: INSULIN GLARGINE,HUM.REC.ANLOG 100 UNITS/ML SQ SCH (20:13)
[2025-05-02 20:31] LABS: GLUCOMETER DEV NAME(LOC) ICUN.7; GLUCOSE,POINT OF CARE 282 MG/DL (70-110)
[2025-05-02 20:31] LABS: GLUCOMETER DEV NAME(LOC) ICUN.7; GLUCOSE,POINT OF CARE 202 MG/DL (70-110)
[2025-05-02 22:06] LABS: CREATININE,URINE RANDOM 58.9 mg/dL (30.0-125.0); PROTEIN,URINE RANDOM 58.0 mg/dL (0-11.9)
[2025-05-03] VITALS: BP 125/61; PULSE 101; RESP 23; TEMP 98.6; O2SAT 95
[2025-05-03 04:00] VITALS: BP 122/67; PULSE 97; RESP 14; TEMP 98.2; O2SAT 95
[2025-05-03 06:06] LABS: GLUCOMETER DEV NAME(LOC) ICU.S7; GLUCOSE,POINT OF CARE 216 MG/DL (70-110)
[2025-05-03 06:38] LABS: CALCIUM, TOTAL 8.4 mg/dL (8.8-10.5); CREATININE 1.33 mg/dL (0.60-1.30); GLOMERULAR FILTR. RATE CALC 47.0 mL/min (>60); GLUCOSE,RANDOM 222.0 mg/dL (70-110); SODIUM SERUM 131.0 mmol/L (136-145); UREA NITROGEN, BLOOD 49.0 mg/dL (7-18)
[2025-05-03 08:00] VITALS: BP 134/47; PULSE 126; PULSE 137; RESP 13; TEMP 98.1; O2SAT 92
[2025-05-03] MEDS: DILTIAZEM HCL CD 180 MG ER CAPSULE PO SCH (08:09)
[2025-05-03] MEDS: METOPROLOL TARTRATE 25 MG TABLET PO SCH (08:32)
[2025-05-03 09:49] LABS: PLATELET COUNT (AUTO) 225 K/uL (150-450); RED BLOOD CELL COUNT(AUTO) 3.65 MIL/uL (4.00-5.20); RED CELL DISTRIBUTION WIDTH 18.1 % (11.5-14.5); WHITE BLOOD COUNT (AUTO) 4.4 K/uL (4.5-11.0)
[2025-05-03 10:05] LABS: % IRON SATURATION 46.7 % (22-44); IRON, SERUM 65.0 mcg/dL (50-175)
[2025-05-03 10:14] LABS: PHOSPHORUS 3.7 mg/dL (2.5-4.9)
[2025-05-03] MEDS ORDERED: SENNOSIDES/DOCUSATE SODIUM 8.6-50 MG TABLET PO PRN (11:45)
[2025-05-03 12:00] VITALS: BP 128/102; PULSE 88; PULSE 89; RESP 20; TEMP 99.2; O2SAT 97
[2025-05-03] MEDS: ONDANSETRON HCL 4 MG/2 ML VIAL IVP PRN (12:18)
[2025-05-03] MEDS: EMPAGLIFLOZIN 10 MG TABLET PO SCH (12:52)
[2025-05-03] MEDS: EPOETIN ALFA 10,000 UNITS/ML VIAL SQ SCH (12:53)
[2025-05-03] MEDS ORDERED: SODIUM CHLORIDE 0.9% 250 ML IV ONE (13:04)
[2025-05-03 16:00] VITALS: BP 106/53; PULSE 108; PULSE 115; RESP 18; TEMP 98.8; O2SAT 98
[2025-05-03] MEDS: METOPROLOL TARTRATE 5 MG/5 ML VIAL IVP PRN (16:47)
[2025-05-03 18:00] LABS: GLUCOMETER DEV NAME(LOC) ICU.S7; GLUCOSE,POINT OF CARE 212 MG/DL (70-110)
[2025-05-03 18:00] LABS: GLUCOMETER DEV NAME(LOC) ICU.S7; GLUCOSE,POINT OF CARE 206 MG/DL (70-110)
[2025-05-03] MEDS: DILTIAZEM HCL 5 MG/ML 5 ML VIAL IVP ONE (18:40)
[2025-05-03 20:00] VITALS: BP 112/60; PULSE 106; RESP 16; TEMP 98.2; O2SAT 95
[2025-05-03 22:11] LABS: GLUCOMETER DEV NAME(LOC) ICU.S7; GLUCOSE,POINT OF CARE 203 MG/DL (70-110)
[2025-05-03] MEDS: ACETAMINOPHEN 325 MG TABLET PO PRN (22:16)
[2025-05-04] VITALS (9 sets, daily range): BP systolic 90–124; BP diastolic 56–85; PULSE 80–114; RESP 12–19; TEMP 97.3–99.2; O2SAT 90–96
[2025-05-04 06:35] LABS: GLUCOMETER DEV NAME(LOC) ICUN.7; GLUCOSE,POINT OF CARE 206 MG/DL (70-110)
[2025-05-04 09:09] LABS: PLATELET COUNT (AUTO) 244 K/uL (150-450); RED BLOOD CELL COUNT(AUTO) 3.91 MIL/uL (4.00-5.20); RED CELL DISTRIBUTION WIDTH 19.1 % (11.5-14.5); WHITE BLOOD COUNT (AUTO) 5.5 K/uL (4.5-11.0)
[2025-05-04 09:13] LABS: CALCIUM, TOTAL 8.4 mg/dL (8.8-10.5); CREATININE 1.68 mg/dL (0.60-1.30); GLOMERULAR FILTR. RATE CALC 36.0 mL/min (>60); GLUCOSE,RANDOM 221.0 mg/dL (70-110); SODIUM SERUM 132.0 mmol/L (136-145); UREA NITROGEN, BLOOD 55.0 mg/dL (7-18)
[2025-05-04 12:35] LABS: GLUCOMETER DEV NAME(LOC) ICUN.7; GLUCOSE,POINT OF CARE 175 MG/DL (70-110)
[2025-05-04] MEDS: SODIUM POLYSTYRENE SULFONATE 15 GM/60 ML SUSPENSION BOTTLE PO ONE (16:00)
[2025-05-04 17:21] LABS: GLUCOMETER DEV NAME(LOC) ICUN.7; GLUCOSE,POINT OF CARE 264 MG/DL (70-110)
[2025-05-05] VITALS (8 sets, daily range): BP systolic 97–118; BP diastolic 64–90; PULSE 64–110; RESP 17–19; TEMP 97.7–98.4; O2SAT 93–98
[2025-05-05 03:07] LABS: ALBUMIN/CREATININE RATIO 231.0 mg/g creat (0-29); CREATININE, URINE (mALB) 57.8 mg/dL (Not Estab.)
[2025-05-05 03:51] LABS: GLUCOMETER DEV NAME(LOC) 5N.2C; GLUCOSE,POINT OF CARE 233 MG/DL (70-110)
[2025-05-05 06:23] LABS: RED CELL DISTRIBUTION WIDTH 18.6 % (11.5-14.5); WHITE BLOOD COUNT (AUTO) 5.8 K/uL (4.5-11.0)
[2025-05-05 06:32] LABS: PLATELET COUNT (AUTO) 226 K/uL (150-450); RED BLOOD CELL COUNT(AUTO) 3.21 MIL/uL (4.00-5.20)
[2025-05-05 06:40] LABS: CALCIUM, TOTAL 8.1 mg/dL (8.8-10.5); CREATININE 1.7 mg/dL (0.60-1.30); GLOMERULAR FILTR. RATE CALC 36.0 mL/min (>60); GLUCOSE,RANDOM 175.0 mg/dL (70-110); SODIUM SERUM 134.0 mmol/L (136-145); UREA NITROGEN, BLOOD 62.0 mg/dL (7-18)
[2025-05-05] MEDS: DIGOXIN 125 MCG TABLET PO SCH (08:37)
[2025-05-05] MEDS: FUROSEMIDE 20 MG/2 ML VIAL IVP ONE ×2 (11:45→16:18)
[2025-05-05] MEDS: AZITHROMYCIN 500 MG TABLET PO SCH (12:07)
[2025-05-05] MEDS ORDERED: SODIUM CHLORIDE 0.9% 500 ML IV ONE (14:53)
[2025-05-05 19:11] LABS: GLUCOMETER DEV NAME(LOC) 5S.1E; GLUCOSE,POINT OF CARE 271 MG/DL (70-110)
[2025-05-05 19:11] LABS: GLUCOMETER DEV NAME(LOC) 5S.1E; GLUCOSE,POINT OF CARE 264 MG/DL (70-110)
[2025-05-06] VITALS (10 sets, daily range): BP systolic 98–152; BP diastolic 68–97; PULSE 66–110; RESP 15–18; TEMP 97.5–98.4; O2SAT 95–99
[2025-05-06 00:21] LABS: GLUCOMETER DEV NAME(LOC) 5S.1E; GLUCOSE,POINT OF CARE 176 MG/DL (70-110)
[2025-05-06 00:21] LABS: GLUCOMETER DEV NAME(LOC) 5S.2E; GLUCOSE,POINT OF CARE 181 MG/DL (70-110)
[2025-05-06 06:26] LABS: CALCIUM, TOTAL 8.0 mg/dL (8.8-10.5); CREATININE 1.63 mg/dL (0.60-1.30); GLOMERULAR FILTR. RATE CALC 38.0 mL/min (>60); GLUCOSE,RANDOM 136.0 mg/dL (70-110); SODIUM SERUM 136.0 mmol/L (136-145); UREA NITROGEN, BLOOD 56.0 mg/dL (7-18)
[2025-05-06 06:50] LABS: GLUCOMETER DEV NAME(LOC) 5S.1E; GLUCOSE,POINT OF CARE 174 MG/DL (70-110)
[2025-05-06 07:16] LABS: PLATELET COUNT (AUTO) 290 K/uL (150-450); RED BLOOD CELL COUNT(AUTO) 3.68 MIL/uL (4.00-5.20); RED CELL DISTRIBUTION WIDTH 18.5 % (11.5-14.5); WHITE BLOOD COUNT (AUTO) 6.2 K/uL (4.5-11.0)
[2025-05-06 12:05] LABS: GLUCOMETER DEV NAME(LOC) 5S.1E; GLUCOSE,POINT OF CARE 173 MG/DL (70-110)
[2025-05-06] MEDS: ONDANSETRON HCL 4 MG/2 ML VIAL IVP ONE (16:49)
[2025-05-06] MEDS: MAGNESIUM CITRATE [LEMON] 300 ML ORAL SOLUTION PO ONE (17:17)
[2025-05-06 20:00] LABS: GLUCOMETER DEV NAME(LOC) 5S.2E; GLUCOSE,POINT OF CARE 162 MG/DL (70-110)
[2025-05-06 20:50] LABS: GLUCOMETER DEV NAME(LOC) 5N.2C; GLUCOSE,POINT OF CARE 141 MG/DL (70-110)
[2025-05-06] MEDS ORDERED: METOPROLOL TARTRATE 25 MG TABLET PO SCH (21:00)
[2025-05-06] MEDS ORDERED: SODIUM CHLORIDE 0.9% 250 ML IV ONE (21:51)
[2025-05-06] MEDS: METOPROLOL TARTRATE 25 MG TABLET PO SCH (21:54)
[2025-05-06] MEDS: ALBUMIN HUMAN 5%-12.5GM/250ML 250 ML IV ONE (21:55)
[2025-05-07 00:07] VITALS: BP 98/77; PULSE 104; RESP 18; TEMP 97.7; O2SAT 95
[2025-05-07 04:17] VITALS: BP 101/73; PULSE 74; RESP 18; TEMP 97.5; O2SAT 92
[2025-05-07 06:34] LABS: PLATELET COUNT (AUTO) 325 K/uL (150-450); RED BLOOD CELL COUNT(AUTO) 4.02 MIL/uL (4.00-5.20); RED CELL DISTRIBUTION WIDTH 18.9 % (11.5-14.5); WHITE BLOOD COUNT (AUTO) 6.9 K/uL (4.5-11.0)
[2025-05-07 06:41] LABS: GLUCOMETER DEV NAME(LOC) 5S.2E; GLUCOSE,POINT OF CARE 160 MG/DL (70-110)
[2025-05-07 07:27] VITALS: BP 95/52; PULSE 63; RESP 19; TEMP 98.3; O2SAT 96
[2025-05-07 07:44] LABS: CALCIUM, TOTAL 8.5 mg/dL (8.8-10.5); CREATININE 1.87 mg/dL (0.60-1.30); GLOMERULAR FILTR. RATE CALC 32.0 mL/min (>60); GLUCOSE,RANDOM 139.0 mg/dL (70-110); SODIUM SERUM 135.0 mmol/L (136-145); UREA NITROGEN, BLOOD 61.0 mg/dL (7-18)
[2025-05-07] MEDS ORDERED: METOPROLOL TARTRATE 25 MG TABLET PO SCH (09:00)
[2025-05-07] MEDS: DILTIAZEM HCL CD 240 MG ER CAPSULE PO SCH (09:19)
[2025-05-07] MEDS: BENZONATATE 100 MG CAPSULE PO SCH (09:20)
[2025-05-07] MEDS ORDERED: ALBUMIN HUMAN 5%-12.5GM/250ML 250 ML IV ONE (11:00)
== END 2025-05-07 12:05 | DRG 637 ==
LOC: EMS 00:45 → EDH 04:08 → 5S 04:53 → ICU 04-30 05:30 → 5N 05-04 17:50
PROVIDERS: ADMIT Internal Medicine; ATTEND Internal Medicine
DX: E11.649 Type 2 diabetes mellitus with hypoglycemia without coma (principal); G93.41 Metabolic encephalopathy; I50.43 Acute on chronic combined systolic (congestive) and diastolic (congestive) heart failure; I27.20 Pulmonary hypertension, unspecified; I13.0 Hypertensive heart and chronic kidney disease with heart failure and stage 1 through stage 4 chronic kidney disease, or unspecified chronic kidney disease; I48.92 Unspecified atrial flutter; D63.1 Anemia in chronic kidney disease; N39.0 Urinary tract infection, site not specified; N17.9 Acute kidney failure, unspecified; N18.9 Chronic kidney disease, unspecified; E03.9 Hypothyroidism, unspecified; E11.65 Type 2 diabetes mellitus with hyperglycemia; M32.9 Systemic lupus erythematosus, unspecified; I05.2 Rheumatic mitral stenosis with insufficiency; E87.1 Hypo-osmolality and hyponatremia; M79.7 Fibromyalgia; E11.22 Type 2 diabetes mellitus with diabetic chronic kidney disease; E78.5 Hyperlipidemia, unspecified; E87.6 Hypokalemia; I48.0 Paroxysmal atrial fibrillation; E11.21 Type 2 diabetes mellitus with diabetic nephropathy; T46.0X5A Adverse effect of cardiac-stimulant glycosides and drugs of similar action, initial encounter; Y92.89 Other specified places as the place of occurrence of the external cause; Z86.718 Personal history of other venous thrombosis and embolism; Z88.2 Allergy status to sulfonamides; Z91.041 Radiographic dye allergy status; Z98.84 Bariatric surgery status
CPT/HCPCS: 71045; 80048; 80162; 81001; 82043; 82570; 82728; 82962; 83036; 83540; 83550; 83735; 83880; 84100; 84145; 84156; 84300; 84443; 84484; 85025; 93005; 93306; 93970; 96361; 96374; 97162; 97164; 97167; 97530; 97535; 99291; J0696; J0885; J1160; J1644; J1815; J1938; J2370; J2405; J3490; J7040; J7042; J7050; J7060; J7120; P9041; 36415-L1; 36415-TC